=== PATIENT | male | born 1975 | race Hispanic/Latino ===

== ENCOUNTER 2018-04-02 09:06 | Inpatient (IN) | payer MEDICAID, OTHER ==
[2018-04-02 10:08] LABS: Basophils % (Auto) 0.4 % (0.0-1.8); Eosinophils # (Auto) 0.1 K/mm3 (0.0-0.4); Eosinophils % (Auto) 1.5 % (0.0-4.3); Hematocrit 45.1 % (35.5-45.6); Hemoglobin 15.6 gm/dl (11.8-15.2); Lymphocytes # (Auto) 1.8 K/mm3 (1.2-5.4); Lymphocytes % (Auto) 27.8 % (13.4-35.0); Mean Corpuscular HGB Conc 35 % (32-34); Mean Corpuscular Hemoglobin 32 pg (28-32); Mean Corpuscular Volume 93 fl (84-94); Monocytes # (Auto) 0.6 K/mm3 (0.0-0.8); Monocytes % (Auto) 8.7 % (0.0-7.3); Platelet Count 244 K/mm3 (140-440); Red Blood Count 4.86 M/mm3 (3.65-5.03); Red Cell Distribution Width 13.8 % (13.2-15.2)
[2018-04-02 10:21] LABS: BUN/Creatinine Ratio 18; Blood Urea Nitrogen 16 mg/dL (9-20); Calcium 9.2 mg/dL (8.4-10.2); Hemolysis Index 29
[2018-04-02 10:26] LABS: INR 0.77 (0.87-1.13)
--- NOTE | 2018-04-02 10:30 | Emergency Department Report ---
ED General Adult HPI - General Chief complaint: Chest Pain Stated complaint: CHEST PAIN/HEAD ACHE Time Seen by Provider: 04/02/18 10:22 Source: patient, RN notes reviewed, old records reviewed Mode of arrival: Ambulatory Limitations: No Limitations - History of Present Illness Initial comments: This is a 43-year-old gentleman. The patient is not known to this provider previously. 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 His first complaint is headache. It is bitemporal and predominantly on the right temporal side. The headache started 4 days ago, and has been gradually getting worse. The patient indicates the headache is not sudden or thunderclap in nature, and did not reach maximal intensity within an hour. He does not have a primary neurologist and cannot recall the name of his neurosurgeon. He denies extremity weakness, numbness, loss of vision, vomiting, neck stiffness , ataxia, fever. The headache is constant for the past 4 days, gradually getting worse, gets worse with exposure to loud sounds. It does not have relieving factors that he is aware of. His next complaint is chest pressure. The chest pressure started this morning. It does not radiate to the back, arms or neck. He endorses some shortness of breath, which is nonexertional, chest pressure has been constant, and does not have exacerbating, relieving factors. He denies lower extremity swelling, travel, immobility, he has taken aspirin every day, and he denies cocaine use. -: Gradual Location: head, chest Radiation: non-radiation Quality: other Consistency: other Improves with: other Worsens with: other Associated Symptoms: chest pain, headaches, loss of appetite, other - Related Data Home Medications Medication Instructions Recorded Confirmed Last Taken ALPRAZolam [Xanax] 2 mg PO BID 05/20/13 04/02/18 05/19/13 20:00 Amitriptyline [Elavil] 25 mg PO QHS 05/20/13 04/02/18 05/19/13 20:00 Atenolol [Tenormin] 100 mg PO DAILY 05/20/13 04/02/18 05/19/13 20:00 HYDROcodone/ACETAMINOPHEN 1 tab PO TID 05/20/13 04/02/1813 20:00 [Hydrocodone-Acetaminophnen 10/500 mg Tab] Simvastatin [Zocor] 40 mg PO QHS 05/20/13 04/02/18 05/19/13 20:00 Previous Rx's Medication Instructions Recorded Last Taken Type HYDROcodone/APAP 7.5-325 [[place] 1 each PO Q6HR PRN #20 tablet 05/20/13 Unknown Rx 7.5/325 mg] Butalb/Acetaminophen/Caffeine 1 each PO Q6H PRN #14 capsule 03/13/14 Unknown Rx [Fioricet 50-300-40 mg Capsule] Allergies Allergy/AdvReac Type Severity Reaction Status Date / Time ketorolac tromethamine Allergy Unknown Verified 03/13/14 06:47 [From Toradol] nalbuphine HCl [From Nubain] Allergy Nausea Verified 03/13/14 06:47 risperidone [From Risperdal] Allergy Unknown Verified 03/13/14 06:47 zolpidem tartrate Allergy Headache Verified 03/13/14 06:47 [From Ambien] nitroglycerin AdvReac Headache Verified 03/13/14 06:47 ED Review of Systems ROS: Stated complaint: CHEST PAIN/HEAD ACHE Other details as noted in HPI Comment: All other systems reviewed and negative ED Past Medical Hx - Past Medical History Hx Hypertension: Yes Hx Heart Attack/AMI: Yes Additional medical history: brain bleed, recurrent headaches. anxiety - Surgical History Hx Cholecystectomy: Yes Hx Appendectomy: Yes Additional Surgical History: hernia repair x 2. brain surgery x 3. right hand/ trigger finger repair - Social History Smoking Status: Current Every Day Smoker - Medications Home Medications: Home Medications Medication Instructions Recorded Confirmed Last Taken Type ALPRAZolam [Xanax] 2 mg PO BID 05/20/13 04/02/18 05/19/13 20:00 History Amitriptyline [Elavil] 25 mg PO QHS 05/20/13 04/02/18 05/19/13 20:00 History Atenolol [Tenormin] 100 mg PO DAILY 05/20/13 04/02/18 05/19/13 20:00 History HYDROcodone/ACETAMINOPHEN 1 tab PO TID 05/20/13 04/02/18 05/19/13 20:00 History [Hydrocodone-Acetaminophnen 10/500 mg Tab] HYDROcodone/APAP 7.5-325 [[place] 1 each PO Q6HR PRN #20 tablet 05/20/13 04/02/18 Unknown Rx 7.5/325 mg] Simvastatin [Zocor] 40 mg PO QHS 05/20/13 04/02/18 05/19/13 20:00 History Butalb/Acetaminophen/Caffeine 1 each PO Q6H PRN #14 capsule 03/13/14 04/02/18 Unknown Rx [Fioricet 50-300-40 mg Capsule] ED Physical Exam - General Limitations: No Limitations General appearance: alert, anxious - Head Head exam: Present: atraumatic, normocephalic - Eye Eye exam: Present: normal appearance, PERRL, EOMI, other (visual acuity intact to finger counting, color perception, reading at a close distance). Absent: nystagmus - ENT ENT exam: Present: normal exam, normal orophraynx, mucous membranes moist, normal external ear exam - Neck Neck exam: Present: normal inspection, full ROM - Respiratory Respiratory exam: Present: normal lung sounds bilaterally. Absent: respiratory distress - Cardiovascular Cardiovascular Exam: Present: regular rate, normal rhythm, normal heart sounds. Absent: systolic murmur, diastolic murmur, rubs, gallop - GI/Abdominal GI/Abdominal exam: Present: soft, normal bowel sounds. Absent: distended, tenderness, guarding, rebound, rigid, pulsatile mass - Rectal Rectal exam: Present: deferred - Extremities Exam Extremities exam: Present: normal inspection, full ROM, normal capillary refill , other (2+ pulses noted in the bilateral upper, lower extremities. Compartments soft. No long bony tenderness. The pelvis is stable.). Absent: tenderness, pedal edema, joint swelling, calf tenderness - Back Exam Back exam: Present: normal inspection, full ROM. Absent: tenderness, CVA tenderness (R), paraspinal tenderness, vertebral tenderness - Neurological Exam Neurological exam: Present: alert, oriented X3, CN II-XII intact, normal gait, other (Extraocular movements intact. Tongue midline. No facial droop. Facial sensation intact to light touch in the V1, V2, V3 distribution bilaterally. 5 and 5 strength in 4 extremities.. Sensation is intact to light touch in 4 extremities.). Absent: motor sensory deficit - Psychiatric Psychiatric exam: Present: anxious - Skin Skin exam: Present: warm, dry, intact, normal color. Absent: rash ED Course Vital Signs 04/02/18 04/02/18 04/02/18 09:25 11:37 13:00 Temperature 98.4 F Pulse Rate 98 H 77 91 H Respiratory 16 16 Rate Blood Pressure 131/87 Blood Pressure 128/75 111/71 [Right] O2 Sat by Pulse 100 99 97 Oximetry - Reevaluation(s) Reevaluation #1: 04/02/18 11:20 Differential diagnosis, including but not limited to: Migraine headache, tension headache, cluster headache, intracranial mass lesion, acute coronary syndrome, pneumonia, hiatal hernia, costochondritis, narcotic dependence, drug- seeking tendencies Assessment and plan: 43-year-old gentleman with 2 complaints. In terms of the patient's headache, patient has a Rose Coma Scale of 15, with an NIH score of 0. He is clinically sober at this time and walks with a steady gait. History and physical are not suggestive of intracranial mass lesion, hemorrhagic or ischemic stroke. The patient will be treated symptomatically with intranasal lidocaine, Reglan, Benadryl. A noncontrast CT scan of the brain is pending. Terms of the patient's chest pain, patient has no pulmonary embolus or DVT risk factors, low risk by well's criteria, perc negative, has an EKG that appears to be unremarkable and unchanged from prior EKG in 2012. Based on the clinical history and EKG and laboratory studies at this point in time, patient is low risk by heart score (score of 3 or less) and is at low risk for major adverse cardiac events and I find him suitable to follow up as an outpatient for cardiac risk stratification. He is unfortunately allergic to nitroglycerin, and will therefore be given acetaminophen for his pain. He is also unfortunately allergic to NSAIDs. Reevaluation #2: 04/02/18 11:35 We will obtain nuclear stress test as patient is not reliable to follow-up as an outpatient secondary to lack of insurance. The on-call aboriginal education worker coordinator, Dr. Johnson has agreed to interpret the nuclear stress test. Second troponin is pending. EKG #2 is pending. Reevaluation #3: 04/02/18 12:18 Change in plans. I am unable to obtain a nuclear stress test for definitive cardiac risk stratification as the pharmacy does not have a dose, and the staff who performed this test have left the building, and logistically cannot be called back. The patient cannot safely follow up as an outpatient to complete his cardiac risk stratification within the next 3 days. Therefore, he will be admitted to the hospital to complete his cardiac risk stratification. I have informed the aboriginal education worker coordinator. The Hospital physician is paged to arrange admission. Reevaluation #4: 04/02/18 12:35 Case is presented to the Hospital physician, Dr. Neumann, who accepted the patient to the medical service ED Medical Decision Making - Lab Data Result diagrams: 04/02/18 09:44 04/02/18 09:44 Vital Signs 04/02/18 09:25 Temperature 98.4 F Pulse Rate 98 H Blood Pressure 131/87 O2 Sat by Pulse 100 Oximetry Temp Pulse Resp BP Pulse Ox 98.4 F 98 H 131/87 100 04/02/18 09:25 04/02/18 09:25 04/02/18 09:25 04/02/18 09:25 Labs 04/02/18 04/02/18 04/02/18 09:44 09:44 09:44 WBC 6.4 RBC 4.86 Hgb 15.6 H Hct 45.1 MCV 93 MCH 32 MCHC 35 H RDW 13.8 Plt Count 244 Lymph % (Auto) 27.8 [place] % (Auto) 8.7 H Eos % (Auto) 1.5 Baso % (Auto) 0.4 Lymph # 1.8 [place] # 0.6 Eos # 0.1 Baso # 0.0 Seg Neutrophils % 61.6 Seg Neutrophils # 3.9 PT 11.1 L INR 0.77 L APTT 31.0 Sodium 143 Potassium 4.5 Chloride 103.0 Carbon Dioxide 27 Anion Gap 18 BUN 16 Creatinine 0.9 Estimated GFR > 60 BUN/Creatinine Ratio 18 Glucose 98 Calcium 9.2 Troponin T < 0.010 - EKG Data -: EKG Interpreted by Me EKG shows normal: sinus rhythm, axis, intervals, QRS complexes Rate: normal - EKG Data When compared to previous EKG there are: no significant change Interpretation: no acute changes, normal EKG - Radiology Data Radiology results: image reviewed interpreted by me: X-ray the chest, interpreted by me, no acute disease, FRONT MAKER shunt appears to be in place with no obvious displacement Critical care attestation.: If time is entered above; I have spent that time in minutes in the direct care of this critically ill patient, excluding procedure time. ED Disposition Clinical Impression: Headache, Chest pain Disposition: OP ADMIT IP TO THIS HOSP Is pt being admited?: Yes Does the pt Need Aspirin: Yes Condition: Stable
[2018-04-02] MEDS ORDERED: XYLOCAINE TOPICAL 4% TP ONE (11:03)
[2018-04-02] MEDS ORDERED: BENADRYL IV ONE (11:03)
[2018-04-02] MEDS ORDERED: REGLAN IV ONE (11:03)
[2018-04-02] MEDS ORDERED: TYLENOL PO ONE (11:03)
--- NOTE | 2018-04-02 11:25 | Cat Scan Report ---
FINAL REPORT EXAM: CT HEAD/BRAIN WO CON HISTORY: Headache TECHNIQUE: CT of the Head without IV contrast. PRIORS: None currently available. FINDINGS: There is no evidence for acute ischemia. There is no hemorrhage. There is no midline shift. There is no mass. Age appropriate butler-white matter attenuation is noted. There is no calvarial fracture. Indu holes for previous catheters or surgeries noted. Right posterior shunt catheter tip is at or near the 3rd ventricle. No hydrocephalus. The temporal bones demonstrate aerated mastoid air cells. The middle ears appear unremarkable. Paranasal sinuses are unremarkable. Globes are intact. IMPRESSION: No acute intracranial findings.
[2018-04-02] MEDS ORDERED: BABY ASPIRIN PO ONE (12:35)
--- NOTE | 2018-04-02 12:42 | XRay Report ---
FINAL REPORT EXAM: XR CHEST ROUTINE 2V HISTORY: SOB, CP TECHNIQUE: Frontal and lateral views of the chest. PRIORS: None currently available. FINDINGS: Cardiac silhouette is within normal limits. There is no effusion. There is no pneumothorax. There is no consolidation. There are no suspicious osseous lesions. 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 IMPRESSION: No acute cardiopulmonary findings.
[2018-04-02] MEDS ORDERED: CAFFEINE PO PRN (16:49)
[2018-04-02] MEDS ORDERED: ACETAMINOPHEN PO PRN (16:49)
[2018-04-02] MEDS ORDERED: BUTALB PO PRN (16:49)
--- NOTE | 2018-04-02 16:49 | History and Physical Report ---
History of Present Illness Date of examination: 04/02/18 Date of admission: 04/02/18 12:35 Chief complaint: CC Chest pain and H/A for 2 days History of present illness: History of Present Illness 43-year-old male with history of hypertension, heart attack in 2004, headaches , brain bleed, OIL RIGGER shunt, anxiety presents to the ER with 2 complaints. His 1st is complaint is chest pressure. The chest pressure started this morning. It does not radiate to the back, arms or neck. He endorses some shortness of breath, which is nonexertional, chest pressure has been constant, and does not have exacerbating, relieving factors. He denies lower extremity swelling, travel, immobility, he has taken aspirin every day, and he denies cocaine use. His 2nd complaint is headache. It is bitemporal and predominantly on the right temporal side. The headache started 4 days ago, and has been gradually getting worse. The patient indicates the headache is not sudden or thunderclap in nature, and did not reach maximal intensity within an hour. He does not have a primary neurologist and cannot recall the name of his neurosurgeon. He denies extremity weakness, numbness, loss of vision, vomiting, neck stiffness, ataxia, fever. The headache is constant for the past 4 days, gradually getting worse, gets worse with exposure to loud sounds. It does not have relieving factors that he is aware of. Past Medical History Hx Hypertension: Yes Hx Heart Attack/AMI: Yes Additional medical history: brain bleed, recurrent headaches. anxiety Surgical History Hx Cholecystectomy: Yes Hx Appendectomy: Yes Additional Surgical History: hernia repair x 2. brain surgery x 3. right hand/ trigger finger repair Social History Smoking Status: Current Every Day Smoker Medications Home Medications: Home Medications Medication Instructions Recorded Confirmed Last Taken Type ALPRAZolam [Xanax] 2 mg PO BID 05/20/13 04/02/18 05/19/13 20:00 History Amitriptyline [Elavil] 25 mg PO QHS 05/20/13 04/02/18 05/19/13 20:00 History Atenolol [Tenormin] 100 mg PO DAILY 05/20/13 04/02/18 05/19/13 20:00 History HYDROcodone/ACETAMINOPHEN 1 tab PO TID 05/20/13 04/02/18 05/19/13 20:00 History [Hydrocodone-Acetaminophnen 10/500 mg Tab] HYDROcodone/APAP 7.5-325 [[place] 1 each PO Q6HR PRN #20 tablet 05/20/13 04/02/18 Unknown Rx 7.5/325 mg] Simvastatin [Zocor] 40 mg PO QHS 05/20/13 04/02/18 05/19/13 20:00 History Butalb/Acetaminophen/Caffeine 1 each PO Q6H PRN #14 capsule 03/13/14 04/02/18 Unknown Rx [Fioricet 50-300-40 mg Capsule] Review of Systems ROS: Stated complaint: CHEST PAIN/HEAD ACHE Other details as noted in HPI Comment: All other systems reviewed and negative Medications and Allergies Allergies Allergy/AdvReac Type Severity Reaction Status Date / Time ketorolac tromethamine Allergy Unknown Verified 03/13/14 06:47 [From Toradol] nalbuphine HCl [From Nubain] Allergy Nausea Verified 03/13/14 06:47 risperidone [From Risperdal] Allergy Unknown Verified 03/13/14 06:47 zolpidem tartrate Allergy Headache Verified 03/13/14 06:47 [From Ambien] nitroglycerin AdvReac Headache Verified 03/13/14 06:47 Home Medications Medication Instructions Recorded Confirmed Last Taken Type ALPRAZolam [Xanax] 2 mg PO BID 05/20/13 04/02/18 05/19/13 20:00 History Amitriptyline [Elavil] 25 mg PO QHS 05/20/13 04/02/18 05/19/13 20:00 History Atenolol [Tenormin] 100 mg PO DAILY 05/20/13 04/02/18 05/19/13 20:00 History HYDROcodone/ACETAMINOPHEN 1 tab PO TID 05/20/13 04/02/18 05/19/13 20:00 History [Hydrocodone-Acetaminophnen 10/500 mg Tab] HYDROcodone/APAP 7.5-325 [[place] 1 each PO Q6HR PRN #20 tablet 05/20/13 04/02/18 Unknown Rx 7.5/325 mg] Simvastatin [Zocor] 40 mg PO QHS 05/20/13 04/02/18 05/19/13 20:00 History Butalb/Acetaminophen/Caffeine 1 each PO Q6H PRN #14 capsule 03/13/14 04/02/18 Unknown Rx [Fioricet 50-300-40 mg Capsule] Exam - Constitutional Vitals: Temp Pulse Resp BP Pulse Ox 98.4 F 91 H 16 111/71 97 04/02/18 09:25 04/02/18 13:00 04/02/18 13:00 04/02/18 13:00 04/02/18 13:00 General appearance: Present: no acute distress, well-nourished - EENT Eyes: Present: PERRL ENT: hearing intact, clear oral mucosa - Neck Neck: Present: supple, normal ROM - Respiratory Respiratory effort: normal Respiratory: bilateral: CTA - Cardiovascular Heart Sounds: Present: S1 & S2. Absent: rub, click - Extremities Extremities: pulses symmetrical, No edema Peripheral Pulses: within normal limits - Abdominal General gastrointestinal: Present: soft, non-tender, non-distended, normal bowel sounds Male genitourinary: Present: normal - Integumentary Integumentary: Present: clear, warm, dry - Musculoskeletal Musculoskeletal: gait normal, strength equal bilaterally - Psychiatric Psychiatric: appropriate mood/affect, intact judgment & insight - Neurologic Neurologic: CNII-XII intact, moves all extremities Results - Labs CBC & Chem 7: 04/02/18 09:44 04/02/18 09:44 Labs: Laboratory Last Values WBC 6.4 K/mm3 (4.5-11.0) 04/02/18 09:44 RBC 4.86 M/mm3 (3.65-5.03) 04/02/18 09:44 Hgb 15.6 gm/dl (11.8-15.2) H 04/02/18 09:44 Hct 45.1 % (35.5-45.6) 04/02/18 09:44 MCV 93 fl (84-94) 04/02/18 09:44 MCH 32 pg (28-32) 04/02/18 09:44 MCHC 35 % (32-34) H 04/02/18 09:44 RDW 13.8 % (13.2-15.2) 04/02/18 09:44 Plt Count 244 K/mm3 (140-440) 04/02/18 09:44 Lymph % (Auto) 27.8 % (13.4-35.0) 04/02/18 09:44 [place] % (Auto) 8.7 % (0.0-7.3) H 04/02/18 09:44 Eos % (Auto) 1.5 % (0.0-4.3) 04/02/18 09:44 Baso % (Auto) 0.4 % (0.0-1.8) 04/02/18 09:44 Lymph # 1.8 K/mm3 (1.2-5.4) 04/02/18 09:44 [place] # 0.6 K/mm3 (0.0-0.8) 04/02/18 09:44 Eos # 0.1 K/mm3 (0.0-0.4) 04/02/18 09:44 Baso # 0.0 K/mm3 (0.0-0.1) 04/02/18 09:44 Seg Neutrophils % 61.6 % (40.0-70.0) 04/02/18 09:44 Seg Neutrophils # 3.9 K/mm3 (1.8-7.7) 04/02/18 09:44 PT 11.1 Sec. (12.2-14.9) L 04/02/18 09:44 INR 0.77 (0.87-1.13) L 04/02/18 09:44 APTT 31.0 Sec. (24.2-36.6) 04/02/18 09:44 Sodium 143 mmol/L (137-145) 04/02/18 09:44 Potassium 4.5 mmol/L (3.6-5.0) 04/02/18 09:44 Chloride 103.0 mmol/L (98-107) 04/02/18 09:44 Carbon Dioxide 27 mmol/L (22-30) 04/02/18 09:44 Anion Gap 18 mmol/L 04/02/18 09:44 BUN 16 mg/dL (9-20) 04/02/18 09:44 Creatinine 0.9 mg/dL (0.8-1.5) 04/02/18 09:44 Estimated GFR > 60 ml/min 04/02/18 09:44 BUN/Creatinine Ratio 18 % 04/02/18 09:44 Glucose 98 mg/dL (75-100) 08/11/18 09:44 Calcium 9.2 mg/dL (8.4-10.2) 04/02/18 09:44 Troponin T < 0.010 ng/mL (0.00-0.029) 04/02/18 15:00 - Imaging and Cardiology EKG: report reviewed (NSR) Assessment and Plan Advance Directives: Yes (FC) VTE prophylaxis?: Chemical - Patient Problems (1) Chest pain Current Visit: Yes Status: Acute Qualifiers: Chest pain type: unspecified Qualified Code(s): R07.9 - Chest pain, unspecified Plan to address problem: Chest pain r/o [place] protocol Lexiscan and serial cardiac enzymes (2) HTN (hypertension) Current Visit: Yes Status: Chronic Qualifiers: Hypertension type: essential hypertension Qualified Code(s): I10 - Essential (primary) hypertension Plan to address problem: COnt Antihypertensives (3) HLD (hyperlipidemia) Current Visit: Yes Status: Chronic Qualifiers: Hyperlipidemia type: mixed hyperlipidemia Qualified Code(s): E78.2 - Mixed hyperlipidemia Plan to address problem: Cont statins (4) Headache Current Visit: Yes Status: Chronic Qualifiers: Headache type: tension-type Plan to address problem: On Fiorcet (5) Chronic pain Current Visit: Yes Status: Chronic Qualifiers: Chronic pain type: chronic pain syndrome Qualified Code(s): G89.4 - Chronic pain syndrome Plan to address problem: On Analgesics (6) DVT prophylaxis Current Visit: Yes Status: Acute Plan to address problem: On Lovenox GIprophylaxis initiated
[2018-04-02] MEDS ORDERED: TYLENOL PO PRN (16:51)
[2018-04-02] MEDS ORDERED: ZOFRAN IV PRN (16:51)
[2018-04-02] MEDS ORDERED: SODIUM CHLORIDE FLUSH SYRINGE 10 ML IV PRN (16:51)
[2018-04-02] MEDS ORDERED: NON-FORMULARY (Atenolol [Tenormin] 100 MG) PO SCH (17:00)
[2018-04-02] MEDS ORDERED: XANAX PO PRN (17:24)
[2018-04-02] MEDS ORDERED: FIORICET PO PRN (17:27)
[2018-04-02] MEDS: TENORMIN PO SCH (18:23)
[2018-04-02] MEDS: MORPHINE IV PRN ×2 (18:28→23:15)
[2018-04-02] MEDS: PEPCID PO SCH (21:32)
[2018-04-02] MEDS: PRAVACHOL PO SCH (21:32)
[2018-04-02] MEDS: XANAX PO SCH (21:32)
[2018-04-02] MEDS: ELAVIL PO SCH (21:33)
[2018-04-02] MEDS ORDERED: NON-FORMULARY (Simvastatin 40 MG) PO SCH (22:00)
[2018-04-02] MEDS: SODIUM CHLORIDE FLUSH SYRINGE 10 ML IV SCH (22:00)
[2018-04-02] MEDS ORDERED: NON-FORMULARY (Alprazolam [Xanax Tab] 2 MG) PO SCH (22:00)
[2018-04-03] MEDS: MORPHINE IV PRN ×3 (05:00→19:47)
[2018-04-03] MEDS ORDERED: LEXISCAN IV ONE (08:20)
[2018-04-03 09:02] LABS: Basophils % (Auto) 0.2 % (0.0-1.8); Eosinophils # (Auto) 0.1 K/mm3 (0.0-0.4); Eosinophils % (Auto) 1.3 % (0.0-4.3); Hematocrit 49.4 % (35.5-45.6); Lymphocytes # (Auto) 1.8 K/mm3 (1.2-5.4); Lymphocytes % (Auto) 27.1 % (13.4-35.0); Mean Corpuscular HGB Conc 34 % (32-34); Mean Corpuscular Hemoglobin 33 pg (28-32); Mean Corpuscular Volume 95 fl (84-94); Monocytes # (Auto) 0.5 K/mm3 (0.0-0.8); Monocytes % (Auto) 8.2 % (0.0-7.3); Platelet Count 200 K/mm3 (140-440)
[2018-04-03 09:19] LABS: Alanine Aminotransferase 42 units/L (7-56); Albumin 3.9 g/dL (3.9-5); BUN/Creatinine Ratio 25; Blood Urea Nitrogen 15 mg/dL (9-20); Hemolysis Index 39
[2018-04-03] MEDS: XANAX PO SCH ×2 (09:22→22:42)
[2018-04-03] MEDS: TENORMIN PO SCH (09:22)
[2018-04-03] MEDS: PEPCID PO SCH ×2 (09:22→22:42)
--- NOTE | 2018-04-03 11:56 | Progress Note ---
Assessment and Plan Assessment and plan: --Chest pain; nonspecific Serial cardiac enzymes, EKG, stress test to rule out reversible ischemia Continue current cardiac medications --Dyslipidemia; continue lipid-lowering medications and low-cholesterol diet --Hypertension; moderate control Continue current antihypertensives and when necessary medications --Chronic headache; significantly improved, continue support. --Chronic pain syndrome; pain medications and supportive care --Ongoing tobacco use; smoking cessation counseling done advised nicotine patch if needed --DVT prophylaxis; Lovenox Closely monitor the patient Possible discharge home tomorrow if stress test is negative And if patient is stable History Interval history: Patient seen and examined medical records reviewed The patient was admitted with chest pain, scheduled for stress test However patient ate his breakfast Stress test rescheduled for tomorrow Patient feels better very mild chest pain intermittent Alert awake oriented 3 not in acute distress Hospitalist Physical - Constitutional Vitals: Temp Pulse Resp BP Pulse Ox 98.1 F 88 18 119/84 100 04/03/18 08:29 04/03/18 09:22 04/03/18 07:48 04/03/18 07:48 04/03/18 07:48 General appearance: Present: no acute distress, well-nourished - EENT Eyes: Present: PERRL, EOM intact - Neck Neck: Present: supple, normal ROM - Respiratory Respiratory effort: normal Respiratory: negative: rales, rhonchi, wheezing - Cardiovascular Rhythm: regular Heart Sounds: Present: S1 & S2 - Extremities Extremities: no ischemia, No edema - Abdominal General gastrointestinal: soft, non-tender, non-distended, normal bowel sounds - Integumentary Integumentary: Present: clear, warm - Psychiatric Psychiatric: appropriate mood/affect, cooperative - Neurologic Neurologic: CNII-XII intact, moves all extremities Results - Labs CBC & Chem 7: 04/03/18 08:33 04/03/18 08:33 Labs: Laboratory Last Values WBC 6.6 K/mm3 (4.5-11.0) 04/03/18 08:33 RBC 5.20 M/mm3 (3.65-5.03) H 04/03/18 08:33 Hgb 17.0 gm/dl (11.8-15.2) H 04/03/18 08:33 Hct 49.4 % (35.5-45.6) H 04/03/18 08:33 MCV 95 fl (84-94) H 04/03/18 08:33 MCH 33 pg (28-32) H 04/03/18 08:33 MCHC 34 % (32-34) 04/03/18 08:33 RDW 14.0 % (13.2-15.2) 04/03/18 08:33 Plt Count 200 K/mm3 (140-440) 04/03/18 08:33 Lymph % (Auto) 27.1 % (13.4-35.0) 04/03/18 08:33 [place] % (Auto) 8.2 % (0.0-7.3) H 04/03/18 08:33 Eos % (Auto) 1.3 % (0.0-4.3) 04/03/18 08:33 Baso % (Auto) 0.2 % (0.0-1.8) 04/03/18 08:33 Lymph # 1.8 K/mm3 (1.2-5.4) 04/03/18 08:33 [place] # 0.5 K/mm3 (0.0-0.8) 04/03/18 08:33 Eos # 0.1 K/mm3 (0.0-0.4) 04/03/18 08:33 Baso # 0.0 K/mm3 (0.0-0.1) 04/03/18 08:33 Seg Neutrophils % 63.2 % (40.0-70.0) 04/03/18 08:33 Seg Neutrophils # 4.2 K/mm3 (1.8-7.7) 04/03/18 08:33 PT 11.1 Sec. (12.2-14.9) L 04/02/18 09:44 INR 0.77 (0.87-1.13) L 04/02/18 09:44 APTT 31.0 Sec. (24.2-36.6) 04/02/18 09:44 Sodium 140 mmol/L (137-145) 04/03/18 08:33 Potassium 4.5 mmol/L (3.6-5.0) 04/03/18 08:33 Chloride 105.1 mmol/L (98-107) 04/03/18 08:33 Carbon Dioxide 21 mmol/L (22-30) L 04/03/18 08:33 Anion Gap 18 mmol/L 04/03/18 08:33 BUN 15 mg/dL (9-20) 04/03/18 08:33 Creatinine 0.6 mg/dL (0.8-1.5) L 04/03/18 08:33 Estimated GFR > 60 ml/min 04/03/18 08:33 BUN/Creatinine Ratio 25 % 04/03/18 08:33 Glucose 92 mg/dL (75-100) 04/03/18 08:33 Hemoglobin A1c 6.0 % (4-6) 04/02/18 19:33 Calcium 9.0 mg/dL (8.4-10.2) 04/03/18 08:33 Total Bilirubin 0.30 mg/dL (0.1-1.2) 04/03/18 08:33 AST 29 units/L (5-40) 04/03/18 08:33 ALT 42 units/L (7-56) 04/03/18 08:33 Alkaline Phosphatase 71 units/L (35-129) 04/03/18 08:33 Troponin T < 0.010 ng/mL (0.00-0.029) 04/02/18 15:00 Total Protein 7.0 g/dL (6.3-8.2) 04/03/18 08:33 Albumin 3.9 g/dL (3.9-5) 04/03/18 08:33 Albumin/Globulin Ratio 1.3 % 04/03/18 08:33
--- NOTE | 2018-04-03 12:45 | Consultation ---
History of Present Illness Consult date: 04/03/18 Consult reason: chest pain Medications and Allergies Allergies Allergy/AdvReac Type Severity Reaction Status Date / Time ketorolac tromethamine Allergy Unknown Verified 03/13/14 06:47 [From Toradol] nalbuphine HCl [From Nubain] Allergy Nausea Verified 03/13/14 06:47 risperidone [From Risperdal] Allergy Unknown Verified 03/13/14 06:47 zolpidem tartrate Allergy Headache Verified 03/13/14 06:47 [From Ambien] nitroglycerin AdvReac Headache Verified 03/13/14 06:47 Home Medications Medication Instructions Recorded Confirmed Last Taken Type ALPRAZolam [Xanax] 2 mg PO BID 05/20/13 04/02/18 05/19/13 20:00 History Amitriptyline [Elavil] 25 mg PO QHS 05/20/13 04/02/18 05/19/13 20:00 History Atenolol [Tenormin] 100 mg PO DAILY 05/20/13 04/02/18 05/19/13 20:00 History HYDROcodone/ACETAMINOPHEN 1 tab PO TID 05/20/13 04/02/18 05/19/13 20:00 History [Hydrocodone-Acetaminophnen 10/500 mg Tab] HYDROcodone/APAP 7.5-325 [[place] 1 each PO Q6HR PRN #20 tablet 05/20/13 04/02/18 Unknown Rx 7.5/325 mg] Simvastatin [Zocor] 40 mg PO QHS 05/20/13 04/02/18 05/19/13 20:00 History Butalb/Acetaminophen/Caffeine 1 each PO Q6H PRN #14 capsule 03/13/14 04/02/18 Unknown Rx [Fioricet 50-300-40 mg Capsule] Active Meds: Active Medications Acetaminophen (Tylenol) 650 mg PO Q4H PRN PRN Reason: Pain MILD(1-3)/Fever >100.5/[place] Acetaminophen/Butalbital/Caffeine (Fioricet) 1 tab PO Q6H PRN PRN Reason: Headache Alprazolam (Xanax) 2 mg PO BID [facility] Last Admin: 04/03/18 09:22 Dose: 2 mg Amitriptyline HCl (Elavil) 25 mg PO QHS [facility] Last Admin: 04/02/18 21:33 Dose: 25 mg Atenolol (Tenormin) 100 mg PO QDAY [facility] Last Admin: 04/03/18 09:22 Dose: 100 mg Enoxaparin Sodium (Lovenox) 40 mg SUB-Q QDAY@2200 [facility] Famotidine (Pepcid) 20 mg PO BID [facility] Last Admin: 04/03/18 09:22 Dose: 20 mg Miscellaneous Medication (Hydrocodone/Acetaminophen [Hydrocodone-Acetaminophnen( Nf) 10/500 Mg Tab]) 1 tab PO TID [facility] Last Admin: 04/03/18 09:24 Dose: Not Given Morphine Sulfate (Morphine) 4 mg IV Q4H PRN PRN Reason: Pain, Moderate (4-6) Last Admin: 04/03/18 05:00 Dose: 4 mg Ondansetron HCl (Zofran) 4 mg IV Q8H PRN PRN Reason: Nausea And Vomiting Pravastatin Sodium (Pravachol) 80 mg PO QHS [facility] Last Admin: 04/02/18 21:32 Dose: 80 mg Sodium Chloride (Sodium Chloride Flush Syringe 10 Ml) 10 ml IV BID [facility] Last Admin: 04/02/18 22:00 Dose: 10 ml Sodium Chloride (Sodium Chloride Flush Syringe 10 Ml) 10 ml IV PRN PRN PRN Reason: LINE FLUSH Physical Examination Vital Signs Temp Pulse BP Pulse Ox 98.4 F 98 H 131/87 100 04/02/18 09:25 04/02/18 09:25 04/02/18 09:25 04/02/18 09:25 General appearance: no acute distress HEENT: Positive: PERRL Cardiac: Positive: Reg Rate and Rhythm Lungs: Positive: clear to auscultation Neuro: Positive: Grossly Intact Abdomen: Positive: Unremarkable (scar in upper mid abdomen.) Male genitourinary: Positive: deferred Skin: Negative: Rash Extremities: Absent: edema Results 04/03/18 08:33 04/03/18 08:33 Cardiac Enzymes 04/03/18 Range/Units 08:33 AST 29 (5-40) units/L CBC 04/03/18 Range/Units 08:33 WBC 6.6 (4.5-11.0) K/mm3 RBC 5.20 H (3.65-5.03) M/mm3 Hgb 17.0 H (11.8-15.2) gm/dl Hct 49.4 H (35.5-45.6) % Plt Count 200 (140-440) K/mm3 Lymph # 1.8 (1.2-5.4) K/mm3 [place] # 0.5 (0.0-0.8) K/mm3 Eos # 0.1 (0.0-0.4) K/mm3 Baso # 0.0 (0.0-0.1) K/mm3 Comprehensive Metabolic Panel 04/03/18 Range/Units 08:33 Sodium 140 (137-145) mmol/L Potassium 4.5 (3.6-5.0) mmol/L Chloride 105.1 (98-107) mmol/L Carbon Dioxide 21 L (22-30) mmol/L BUN 15 (9-20) mg/dL Creatinine 0.6 L (0.8-1.5) mg/dL Glucose 92 (75-100) mg/dL Calcium 9.0 (8.4-10.2) mg/dL AST 29 (5-40) units/L ALT 42 (7-56) units/L Alkaline Phosphatase 71 (35-129) units/L Total Protein 7.0 (6.3-8.2) g/dL Albumin 3.9 (3.9-5) g/dL Assessment and Plan - Patient Problems (1) Chest pain Current Visit: Yes Status: Acute Qualifiers: Chest pain type: unspecified Qualified Code(s): R07.9 - Chest pain, unspecified Plan to address problem: Patient with atypical chest pain,with hx. of CAD ,according to patient documented in 2004 in [place] by cath,no f/u since then.EKG and cardiac enzymes are unremarkable.Awaiting echo and iv Lexiscan nuclear imaging.Etiology of chest pain is not clear. Risk factor modifaction,aware of harmful effects of smoking. (2) HLD (hyperlipidemia) Current Visit: Yes Status: Chronic Qualifiers: Hyperlipidemia type: mixed hyperlipidemia Qualified Code(s): E78.2 - Mixed hyperlipidemia (3) HTN (hypertension) Current Visit: Yes Status: Chronic Qualifiers: Hypertension type: essential hypertension Qualified Code(s): I10 - Essential (primary) hypertension (4) Headache Current Visit: Yes Status: Chronic Qualifiers: Headache type: tension-type
[2018-04-03] MEDS: SODIUM CHLORIDE FLUSH SYRINGE 10 ML IV SCH ×2 (12:58→22:43)
[2018-04-03] MEDS ORDERED: LOVENOX SUB-Q SCH (22:00)
[2018-04-03] MEDS: ELAVIL PO SCH (22:42)
[2018-04-03] MEDS: PRAVACHOL PO SCH (22:42)
--- NOTE | 2018-04-03 22:50 | Consultation ---
CARDIOLOGY CONSULTATION HISTORY OF PRESENT ILLNESS: The patient is a 43-year-old white gentleman who presented to the Emergency Room on April 02, 2018 with complaints of headache and chest pain. He is having chest tightness as if somebody is sitting on the anterior chest of few days' duration, more or less constant, not related to exertion; however, he does get he says whenever he tries to walk, he has some exertional chest pain and shortness of breath. In addition, the patient has chronic headache of many years' duration, used to be seen by a neurologist who used to give him medication. However, apparently the neurologist had a stroke and he did not see him in the last 6 months and is having constant headaches. Otherwise, denies any fever, cough, and chills. EKG done in the Emergency Room showed sinus rhythm within normal limits, but no significant changes were noted. He is being admitted for further management of his chest pain and headache. PAST MEDICAL HISTORY: Significant for that, he gives history of having a heart attack in 2004, apparently had a catheterization done in [place] in 2004 when he was told he has a blockage in the heart. No stent was inserted. 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 Similarly, patient says he has problems with the brain, that is bleeding, and has a shunt put in from the brain to the stomach many years ago. Being followed by a neurologist up to 6 months according to him. He has underlying history of essential hypertension and chronic smoking and he still smokes. He did not have any cardiac evaluation in a long time according to him. He says he did not have any cardiac catheterization done in many years. MEDICATIONS: At home included Xanax 2 mg twice a day, Elavil 25 mg at bedtime, atenolol 100 mg daily, hydrocodone/acetaminophen 1 tablet 3 times days, Zocor 40 mg at bedtime. PAST SURGICAL HISTORY: Included brain surgery with ventriculoperitoneal shunt many years ago, history of cholecystectomy and appendectomy. History of hernia repair x 2. REVIEW OF SYSTEMS: Except for the headache and chest pain mentioned above, denied any fever or coughing. No skin rash. No change in the bowel habits. No urinary symptoms. No orthopnea, no PND, or leg swelling. LABORATORY DATA: Showed a WBC count of 6.4 with hemoglobin of 15.6 g/dL. Platelet count of 244,000. BUN is 16, creatinine of 0.9, potassium of 4.5. Glucose is 98. Troponin is less than 0.010. PHYSICAL EXAMINATION: GENERAL: The patient appears to be comfortable, in no acute distress. HEENT: Conjunctivae pink. Sclerae anicteric. HEART: There is an old scar on the cranium. LUNGS: Clear. ABDOMEN: Benign. There is a midline scar in the epigastric area. Otherwise, abdomen is benign. EXTREMITIES: Without edema. NEUROLOGIC: Alert, oriented x 3. FINAL IMPRESSION: 1. Chest tightness of many days' duration with normal cardiac enzymes and EKG. Significance is not clear. The patient states he had a heart attack in 2004, had a catheterization done at that time in [place] and he was told has a blockage, but he did not have any followup. 2. Headaches, chronic, with history of shunting performed many years ago, followed by a neurologist. 3. Hypertension. 4. Hyperlipidemia. 5. Chronic smoking. At this point, etiology of chest pain is not clear. We would further evaluate with a stress nuclear imaging and echocardiogram. The patient also mentions that he did not have any cardiac catheterization performed in a while. Agree with present management. Thank you very much Dr. Huang for letting us participate in outpatient care. JOB# [id number] BK/ROX
[2018-04-04] MEDS: MORPHINE IV PRN ×5 (00:09→15:04)
[2018-04-04] MEDS ORDERED: LEXISCAN IV ONE ×2 (08:38→08:44)
[2018-04-04] MEDS ORDERED: MORPHINE ONE (09:19)
--- NOTE | 2018-04-04 10:57 | Progress Note ---
Assessment and Plan atypical chest pain htn chol history of brain surgery rec: stress test no ischemia, cont current meds and may discharge from [facility] point of view Subjective Date of service: 04/04/18 Principal diagnosis: chest pain Interval history: pt has been having no chest pain Objective Vital Signs Temp Pulse Resp BP BP Pulse Ox 04/04/18 09:17 104 H 117/82 04/04/18 09:16 106 H 133/77 04/04/18 09:15 111 H 127/82 04/04/18 09:14 106 H 109/83 04/04/18 09:13 102 H 126/86 04/04/18 08:49 91 H 121/85 04/04/18 07:12 97.9 F 89 20 111/75 96 04/04/18 05:21 98.6 F 20 120/83 04/04/18 05:20 49 L 96 04/04/18 00:00 97.5 F L 94 H 20 122/76 98 04/03/18 19:16 97.7 F 101 H 20 125/80 97 04/03/18 16:20 98.3 F 80 20 122/79 99 04/03/18 12:21 98.1 F 72 20 118/65 100 - Physical Examination General: No Apparent Distress HEENT: Positive: PERRL Neck: Positive: trachea midline Cardiac: Positive: Reg Rate and Rhythm Lungs: Positive: clear to auscultation Neuro: Positive: Grossly Intact Abdomen: Positive: Unremarkable (scar in upper mid abdomen.) Skin: Negative: Rash Extremities: Absent: edema - Imaging and Cardiology EKG: report reviewed (NSR) Pharmacologic stress test: report reviewed (normal myocardial perfuision no ischemia and normal lv function) - Telemetry EKG Rhythm: Sinus Rhythm
[2018-04-04] MEDS: XANAX PO SCH (11:14)
[2018-04-04] MEDS: PEPCID PO SCH (11:14)
[2018-04-04] MEDS: TENORMIN PO SCH (11:15)
[2018-04-04] MEDS: SODIUM CHLORIDE FLUSH SYRINGE 10 ML IV SCH (11:17)
[2018-04-04 11:21] VITALS: BP 143/92
[2018-04-04 12:18] LABS: Chol/HDL Ratio 4.92 %
--- NOTE | 2018-04-04 13:32 | Treadmill Report ---
NUCLEAR PERFUSION STUDY REASON FOR STUDY: Chest pain. IMAGING PROTOCOL: Single isotope used documented as single isotope protocol. IMAGING RESULTS: Normal cavity size from stress to rest. Normal distribution of radionuclide in the anterior, inferior, septal, and apical regions. Gated SPECT, EF greater than 65% with no motion abnormality. The patient infused Lexiscan with no EKG changes. SUMMARY: 1. Negative Lexiscan EKG. 2. Normal rest and stress myocardial perfusion scan. No significant ischemia. No wall motion abnormality. Gated SPECT, EF greater than 65%. JOB# [id number] YEISON/ROX
--- NOTE | 2018-04-04 13:45 | Discharge Summary ---
Providers - Providers Date of Admission: 04/02/18 12:35 Date of discharge: 04/04/18 Attending physician: ELLY ZAYAS 04/02/18 11:25 Consult to Case Management [CONS] Urgent Services Needed at Discharge: [facility] Other Notified:: call patient please Additional Physician Instructions: Patient reports he does not have insurance , please contact patient's to discuss options for insurance 04/02/18 11:31 Consult to Physician [CONS] Urgent Comment: Consulting Provider: MENA PIZARRO Physician Instructions: Reason For Exam: cp Primary care physician: W[employer]ER Hospitalization Reason for admission: chest pain Condition: Stable Pertinent studies: Stress test; negative for reversible ischemia, normal ejection fraction CT head without contrast; no acute abnormality Chest x-ray; normal study Hospital course: 43-year-old male patient with significant past medical history off chronic pain syndrome, was admitted through emergency room visit left-sided chest pain and headache CT head without contrast negative Admitted to the hospital symptomatic managed, evaluated by cardiology Had stress test which was negative with normal LV function Patient was symptomatically managed 2 days comfortable no new complaints Physical examination prior to discharge is unremarkable Smoking cessation counseling done advised to quit tobacco use Also advised patch as needed Patient cleared by cardiology for discharge Patient is hemodynamically and clinically stable at discharge Discharge diagnosis: --Chest pain; nonspecific probably secondary to GERD, stress test negative --GERD: Pepcid --Dyslipidemia; statin --Hypertension; stable --Chronic headache; CT negative --Chronic pain syndrome; pain medications follow pain management --Ongoing tobacco use; smoking cessation counseling Disposition: DC-01 TO HOME OR SELFCARE Time spent for discharge: 32 min Core Measure Documentation - Palliative Care Palliative Care/ Comfort Measures: Not Applicable - Core Measures Any of the following diagnoses?: none Exam - Constitutional Vitals: Temp Pulse Resp BP Pulse Ox 97.9 F 101 H 20 143/92 98 04/04/18 11:09 04/04/18 11:15 04/04/18 11:09 04/04/18 11:15 04/04/18 11:09 General appearance: Present: no acute distress, well-nourished - EENT Eyes: Present: PERRL, EOM intact - Neck Neck: Present: supple, normal ROM - Respiratory Respiratory effort: normal Respiratory: negative: rales, rhonchi, wheezing - Cardiovascular Rhythm: regular Heart Sounds: Present: S1 & S2 - Extremities Extremities: no ischemia, No edema - Abdominal General gastrointestinal: Present: soft, non-tender, non-distended, normal bowel sounds - Integumentary Integumentary: Present: clear, warm - Musculoskeletal Musculoskeletal: strength equal bilaterally - Psychiatric Psychiatric: appropriate mood/affect, cooperative - Neurologic Neurologic: CNII-XII intact, moves all extremities Plan Activity: no restrictions Diet: low salt Special Instructions: smoking cessation Follow up with: [facility] [Provider Group] - 3-5 Days PRIMARY CARE,MD [Primary Care Provider] - 3-5 Days KAMALJIT KEITA MD [Referring] - 3-5 Days Prescriptions: Atenolol [Tenormin] 100 mg PO QDAY #30 tablet Famotidine [Pepcid] 20 mg PO BID #20 tablet HYDROcodone/APAP 7.5-325 [[place] 7.5-325 mg TAB] 1 each PO QHS PRN #7 tablet PRN Reason: Pain Simvastatin [Zocor TAB] 40 mg PO QHS #30 tablet
== END 2018-04-04 15:48 | disposition home or self-care (01) | DRG 392 ==
LOC: ED 09:06 → 4A 12:35
PROVIDERS: ADMIT Internal Medicine; ATTEND Internal Medicine
DX: K21.9 Gastro-esophageal reflux disease without esophagitis (principal); E87.2 Acidosis; I10 Essential (primary) hypertension; F17.200 Nicotine dependence, unspecified, uncomplicated; G89.4 Chronic pain syndrome; I25.10 Atherosclerotic heart disease of native coronary artery without angina pectoris; E78.00 Pure hypercholesterolemia, unspecified; G44.229 Chronic tension-type headache, not intractable; Z71.6 Tobacco abuse counseling; I25.2 Old myocardial infarction; Z79.01 Long term (current) use of anticoagulants; Z79.899 Other long term (current) drug therapy; Z88.6 Allergy status to analgesic agent; Z88.8 Allergy status to other drugs, medicaments and biological substances; Z90.49 Acquired absence of other specified parts of digestive tract
CPT/HCPCS: 36415; 70450; 71046; 78452; 80048; 80053; 80061; 83036; 84484; 85025; 85610; 85730; 93005; 93010; 93017; 96374; 96375; 99406; A9270-GY; A9502; J1200; J1650; J2270; J2765; J2785

== ENCOUNTER 2020-04-15 07:16 | Emergency (ER) | payer SELFPAY ==
[2020-04-15 07:43] VITALS: BP 153/102
[2020-04-15] MEDS ORDERED: diphenhydrAMINE 50 MG/ML VIAL IV ONE (07:51)
[2020-04-15] MEDS ORDERED: dexAMETHasone 4 MG/ML VIAL IV ONE (07:51)
[2020-04-15] MEDS ORDERED: METOCLOPRAMIDE 10 MG/2 ML INJ IV ONE (07:51)
[2020-04-15] MEDS ORDERED: SODIUM CHLORIDE 0.9% 1000 ML 1,000 ML IV ONE (07:51)
--- NOTE | 2020-04-15 08:47 | Emergency Department Report ---
ED Headache HPI - General Chief Complaint: Headache Stated Complaint: CHEST PAIN, HEADACHE Time Seen by Provider: 04/15/20 07:42 - History of Present Illness Initial Comments: Patient is a 45-year-old male presents emergency room with complaints of a right temporal headache that began 2 days ago. Patient states that he has a history of brain surgery x3 and has a CUFF SLITTER shunt. He states that he has had the shunt since 2004. Patient states that he is treated by his primary care doctor Dr. Escobedo in [place] for his headaches and is prescribed hydrocodone per patient. He states that a few times a year he does have breakthrough headaches that are not controlled by his home medication and he presents to the emergency room for medication treatment. He states that this headache feels similar to previous headaches. He denies any fever, vomiting, vision changes, numbness, weakness, neck stiffness, thunderclap headache. Patient states that he last had a CT scan of his head and a full shunt series 6 months ago at [facility] which he states were all normal. He reports he also has a history of hypertension. He has multiple allergies recorded including Toradol, Nubain, Risperdal, Ambien, nitroglycerin. Allergies/Adverse Reactions: Allergies ketorolac tromethamine [From Toradol] Allergy (Verified 03/13/14 06:47) Unknown nalbuphine HCl [From Nubain] Allergy (Verified 03/13/14 06:47) Nausea risperidone [From Risperdal] Allergy (Verified 03/13/14 06:47) Unknown zolpidem tartrate [From Ambien] Allergy (Verified 03/13/14 06:47) Headache nitroglycerin Adverse Reaction (Verified 03/13/14 06:47) Headache Home Medications: Ambulatory Orders ALPRAZolam [Xanax TAB] 2 mg PO BID 05/20/13 Amitriptyline [Elavil] 25 mg PO QHS 05/20/13 Butalb/Acetaminophen/Caffeine [Fioricet 50-300-40 mg CAP] 1 each PO Q6H PRN #14 capsule 03/13/14 Famotidine [Pepcid] 20 mg PO BID #20 tablet 04/04/18 HYDROcodone/APAP 7.5-325 [[place] 7.5-325 mg TAB] 1 each PO QHS PRN #7 tablet 04/04/18 Simvastatin [Zocor TAB] 40 mg PO QHS #30 tablet 04/04/18 atenoloL [Tenormin] 100 mg PO QDAY #30 tablet 04/04/18 ED Review of Systems ROS: Stated complaint: CHEST PAIN, HEADACHE Other details as noted in HPI Comment: All other systems reviewed and negative ED Past Medical Hx - Past Medical History Previous Medical History?: Yes Hx Hypertension: Yes Hx Heart Attack/AMI: Yes Additional medical history: brain bleed, recurrent headaches. anxiety - Surgical History Past Surgical History?: Yes Hx Cholecystectomy: Yes Hx Appendectomy: Yes Additional Surgical History: hernia repair x 2. brain surgery x 3. right hand/trigger finger repair - Social History Smoking Status: Former Smoker Substance Use Type: None - Medications Home Medications: Home Medications Medication Instructions Recorded Confirmed Last Taken Type ALPRAZolam [Xanax TAB] 2 mg PO BID 05/20/13 04/02/18 05/19/13 20:00 History Amitriptyline [Elavil] 25 mg PO QHS 05/20/13 04/02/18 05/19/13 20:00 History Butalb/Acetaminophen/Caffeine 1 each PO Q6H PRN #14 capsule 03/13/14 04/02/18 Unknown Rx [Fioricet 50-300-40 mg CAP] Famotidine [Pepcid] 20 mg PO BID #20 tablet 04/04/18 Unknown Rx HYDROcodone/APAP 7.5-325 [[place] 1 each PO QHS PRN #7 tablet 04/04/18 Unknown Rx 7.5-325 mg TAB] Simvastatin [Zocor TAB] 40 mg PO QHS #30 tablet 04/04/18 Unknown Rx atenoloL [Tenormin] 100 mg PO QDAY #30 tablet 04/04/18 Unknown Rx ED Physical Exam - General Limitations: No Limitations General appearance: alert, in no apparent distress - Head Head exam: Present: atraumatic, normocephalic - Eye Eye exam: Present: normal appearance, PERRL, EOMI. Absent: conjunctival injection, nystagmus, periorbital swelling, periorbital tenderness Pupils: Present: normal accommodation - ENT ENT exam: Present: mucous membranes moist - Neck Neck exam: Present: normal inspection, full ROM. Absent: tenderness, meningismus - Respiratory Respiratory exam: Present: normal lung sounds bilaterally. Absent: respiratory distress, wheezes, rales, rhonchi, stridor, chest wall tenderness, accessory muscle use, decreased breath sounds, prolonged expiratory - Cardiovascular Cardiovascular Exam: Present: regular rate, normal rhythm, normal heart sounds. Absent: systolic murmur, diastolic murmur, rubs, gallop - Neurological Exam Neurological exam: Present: alert, oriented X3, CN II-XII intact, normal gait, other (normal finger to nose, normal heel to garcia, 5/5 muscle strength in the BUE/BLE, sensation intact throughout, pt is able to lift each leg off the bed and hold it for >15 sec, no pronator drift, no facial asymmetry, no focal neuro deficit). Absent: motor sensory deficit - Psychiatric Psychiatric exam: Present: normal affect, normal mood - Skin Skin exam: Present: warm, dry, intact ED Course Vital Signs 04/15/20 07:27 Temperature 98.1 F Pulse Rate 92 H Respiratory 18 Rate Blood Pressure 153/102 O2 Sat by Pulse 99 Oximetry ED Medical Decision Making - Medical Decision Making Patient is a 45-year-old male presents emergency room with complaints of a right temporal headache that began 2 days ago. Patient states that he has a history of brain surgery x3 and has a CUFF SLITTER shunt. He states that he has had the shunt since 2004. Patient states that he is treated by his primary care doctor Dr. Escobedo in [place] for his headaches and is prescribed hydrocodone per patient. He states that a few times a year he does have breakthrough headaches that are not controlled by his home medication and he presents to the emergency room for medication treatment. He states that this headache feels similar to previous headaches. He denies any fever, vomiting, vision changes, numbness, weakness, neck stiffness, thunderclap headache. Patient states that he last had a CT scan of his head and a full shunt series 6 months ago at [facility] which he states were all normal. He reports he also has a history of hypertension. He has multiple allergies recorded including Toradol, Nubain, Risperdal, Ambien, nitroglycerin. Patient has no neurological deficits on exam. Patient given medications and symptoms improved. Patient states this is typical of his headaches. advised pt Please continue taking your home medications as prescribed by your doctor. Please follow-up with your primary care doctor. Please follow-up with your doctors at [facility]. Return to emergency room for any new or worsening symptoms. Critical care attestation.: If time is entered above; I have spent that time in minutes in the direct care of this critically ill patient, excluding procedure time. ED Disposition Clinical Impression: Acute headache Qualifiers: Headache type: unspecified Intractability: not intractable Qualified Code(s): R51 - Headache Disposition: DC-01 TO HOME OR SELFCARE Is pt being admited?: No Does the pt Need Aspirin: No Condition: Stable Instructions: Acute Headache (ED) Additional Instructions: Please continue taking your home medications as prescribed by your doctor. Please follow-up with your primary care doctor. Please follow-up with your doctors at [facility]. Return to emergency room for any new or worsening symptoms. Referrals: PRIMARY CARE, [Primary Care Provider] - 2-3 Days Time of Disposition: 09:11 Print Language: [place] ISLANDER
[2020-04-15] MEDS ORDERED: oxyCODONE 5 MG TAB PO ONE (08:52)
== END 2020-04-15 09:25 | disposition home or self-care (01) ==
LOC: ED 07:16
DX: R51 Headache (principal); F41.9 Anxiety disorder, unspecified; I10 Essential (primary) hypertension; I25.2 Old myocardial infarction; Z90.49 Acquired absence of other specified parts of digestive tract; Z98.890 Other specified postprocedural states; Z79.899 Other long term (current) drug therapy; Z87.891 Personal history of nicotine dependence; Z88.8 Allergy status to other drugs, medicaments and biological substances
CPT/HCPCS: 96361; 96374; 96375; 99282; J1100; J1200; J2765; J7030

== ENCOUNTER 2021-03-27 04:08 | Emergency (ER) | payer SELFPAY ==
--- NOTE | 2021-03-27 06:06 | XRay Report ---
CHEST 2 VIEWS INDICATION / CLINICAL INFORMATION: Chest Pain and SOB. History of shunt. COMPARISON: 07/12/18 FINDINGS: SUPPORT DEVICES: None. HEART / MEDIASTINUM: No significant abnormality. LUNGS / PLEURA: No significant pulmonary or pleural abnormality. No pneumothorax. ADDITIONAL FINDINGS: Right chest wall AP shunt catheter is unchanged. IMPRESSION: 1. No acute findings. Signer Name: Itzel Tanner MD Signed: 03/27/2021 6:01 AM Workstation Name: [id number]
[2021-03-27 06:24] LABS: Basophils % (Auto) 0.3 % (0.0-1.8); Eosinophils # (Auto) 0.1 K/mm3 (0.0-0.4); Eosinophils % (Auto) 1.3 % (0.0-4.3); Hematocrit 46.6 % (35.5-45.6); Lymphocytes % (Auto) 35.9 % (13.4-35.0); Mean Corpuscular HGB Conc 34 % (32-34); Mean Corpuscular Volume 93 fl (84-94); Monocytes # (Auto) 0.6 K/mm3 (0.0-0.8); Monocytes % (Auto) 10.2 % (0.0-7.3); Platelet Count 228 K/mm3 (140-440); Red Blood Count 5.01 M/mm3 (3.65-5.03); Red Cell Distribution Width 13.6 % (13.2-15.2)
--- NOTE | 2021-03-27 06:38 | Cat Scan Report ---
CT HEAD WITHOUT CONTRAST INDICATION / CLINICAL INFORMATION: Headache from shunt he's had 15 years per patient. TECHNIQUE: All CT scans at this location are performed using CT dose reduction for ALARA by means of automated exposure control. COMPARISON: CT dated 07/12/18 FINDINGS: HEMORRHAGE: None. EXTRA-AXIAL SPACES: Normal in size and morphology for the patient's age. VENTRICULAR SYSTEM: Normal in size and morphology for the patient's age. Right posterior ventriculost rowena catheter is unchanged. CEREBRAL PARENCHYMA: No significant abnormality. No acute territorial infarct. MIDLINE SHIFT / HERNIATION: None. CEREBELLUM / BRAINSTEM: No significant abnormality. ORBITS: Normal as visualized. SOFT TISSUES: No significant abnormality. SKULL: No significant abnormality. PARANASAL SINUSES / MASTOID AIR CELLS: Normal as visualized. ADDITIONAL FINDINGS: None. IMPRESSION: 1. No acute intracranial abnormality. No significant change. Signer Name: Itzel Tanner MD Signed: 03/27/2021 6:34 AM Workstation Name: [id number]
[2021-03-27 06:52] LABS: Alanine Aminotransferase 25 units/L (7-56); Albumin 4.8 g/dL (3.9-5); Blood Urea Nitrogen 14 mg/dL (9-20); Calcium 9.8 mg/dL (8.4-10.2); Hemolysis Index 47
[2021-03-27 06:59] LABS: BUN/Creatinine Ratio 20
[2021-03-27 08:03] VITALS: BP 149/51
--- NOTE | 2021-03-27 11:15 | Electrocardiograph Report ---
[facility] Test Date: 2021-03-27 Test Time: 05:37:21 Pat Name: SHIVANI BROCK Department: Room: Gender: M [employer] Assistant: SCOT : 1975 Requested By: ED DOC Order Number: [id number] Reading MD: Olvin Hagen Measurements Intervals [place] Rate: 74 P: 27 FL: 137 QRS: 79 QRSD: 92 T: 71 QT: 375 QTc: 417 Interpretive Statements Sinus rhythm Normal ECG No previous ECG available for comparison Electronically Signed On 03-27-2021 11:15:24 EDT by Olvin Hagen
== END 2021-03-27 06:00 | disposition left against medical advice (07) ==
LOC: ED 04:08
DX: R07.9 Chest pain, unspecified (principal); Z53.21 Procedure and treatment not carried out due to patient leaving prior to being seen by health care provider
CPT/HCPCS: 36415; 70450; 71046; 80053; 84484; 85025; 93005